=== PATIENT | male | born 1995 ===

== ENCOUNTER 2019-09-18 09:21 | Emergency (ER) | payer SELFPAY ==
[~2019-09-18] VITALS: Ht 182.9 cm; Wt 99.0 kg
[2019-09-18 09:31] VITALS: BP 134/81
[2019-09-18] MEDS ORDERED: CefTRIAXone 250MG IM Kit w/LIDOcaine IM ONE (09:50)
[2019-09-18] MEDS ORDERED: DOXY100T56 PO (09:52)
== END 2019-09-18 10:28 | disposition home or self-care (01) ==
LOC: ER 09:22
DX: Z00.00 Encounter for general adult medical examination without abnormal findings (principal); Z20.2 Contact with and (suspected) exposure to infections with a predominantly sexual mode of transmission; Z59.0 Homelessness; Z79.899 Other long term (current) drug therapy
CPT/HCPCS: 99283